=== PATIENT | male | born 1955 | race Hispanic/Latino ===

== ENCOUNTER 2019-01-26 08:59 | Emergency (ER) | payer OTHER, MEDICARE ==
[2019-01-26] MEDS ORDERED: TRAMADOL HCL 50 MG TABLET ONE (09:45)
== END 2019-01-26 10:17 | disposition home or self-care (01) ==
LOC: EDH 08:59
DX: M17.11 Unilateral primary osteoarthritis, right knee (principal); M25.561 Pain in right knee; M25.461 Effusion, right knee; R03.0 Elevated blood-pressure reading, without diagnosis of hypertension; E78.5 Hyperlipidemia, unspecified; Z72.0 Tobacco use
CPT/HCPCS: 29505; 73562

== ENCOUNTER → 2023-07-25 | Outpatient (CLI) | payer OTHER, MEDICARE | END | disposition home or self-care (01) | LOC: RAH 13:18 | PROVIDERS: ATTEND Physician Assistant Medical | DX: M47.27 Other spondylosis with radiculopathy, lumbosacral region (principal); M48.061 Spinal stenosis, lumbar region without neurogenic claudication | CPT/HCPCS: 72148 ==